=== PATIENT | female | born 1960 | race Caucasian/White ===

== ENCOUNTER 2020-11-30 02:45 | Emergency (ER) | payer OTHER ==
[~2020-11-30] VITALS: Ht 172.7 cm; Wt 80.7 kg
[2020-11-30 05:05] VITALS: BP 130/86
[2020-11-30] MEDS ORDERED: KETOROLAC TROMETH 60MG/2ML VIAL IM ONE ×2 (05:15)
[2020-11-30] MEDS ORDERED: ONDANSETRON ODT 4 MG TAB PO ONE (05:15)
== END 2020-11-30 06:10 | disposition home or self-care (01) ==
LOC: ER 02:45
DX: G89.29 Other chronic pain (principal); R51.9 Headache, unspecified; Z20.822 Contact with and (suspected) exposure to COVID-19
CPT/HCPCS: 36415; 70450; 87426; 96372; 99284; J1885; Q0162